=== PATIENT | female | born 1990 | race Caucasian/White ===

== ENCOUNTER 2017-05-24 16:07 | Emergency (ER) | payer OTHER ==
[~2017-05-24] VITALS: Ht 167.6 cm; Wt 117.9 kg
[~2017-05-24 16:07] MED LIST: IBUPROFEN 800800 M1 PO
[2017-05-24] MEDS ORDERED: IBUPROFEN 800800 M1 PO (17:43)
== END 2017-05-24 18:04 | disposition home or self-care (01) ==
LOC: ER 16:07
DX: S00.11XA Contusion of right eyelid and periocular area, initial encounter (principal); Y04.8XXA Assault by other bodily force, initial encounter; Y93.89 Activity, other specified; Y92.098 Other place in other non-institutional residence as the place of occurrence of the external cause; Y99.8 Other external cause status; F17.210 Nicotine dependence, cigarettes, uncomplicated